=== PATIENT | female | born 2000 | race Caucasian/White ===

== ENCOUNTER → 2024-05-17 | Outpatient (CLI) | payer OTHER, SELFPAY ==
--- NOTE | 2024-05-17 14:39 | BI_ITS ---
PROCEDURE: DIAG MAMM W/CAD, BILAT; BILAT BRST PARTH STAND ALONE; BREAST LIMITED UNILATERAL REASON FOR EXAM: 23-year-old female presents with palpable concern with associated tenderness in the upper-outer right breast. Family history of breast cancer in 2 maternal aunts in their 30s and for 50s. TECHNIQUE: Bilateral diagnostic digital breast tomosynthesis with 2D and 3D images. Computer aided detection. Also, targeted right breast ultrasound was performed. COMPARISON: Baseline examination, no priors. FINDINGS: MAMMOGRAM: The breasts are almost entirely fatty. There is a triangle skin marker indicating the area of palpable concern in the upper-outer right breast at middle depth with an underlying high density circumscribed round mass. There are no additional findings in the right breast. There are no suspicious masses grouped calcifications or architectural distortions in the left breast. ULTRASOUND: Targeted right breast ultrasound performed of the area of palpable concern with associated pain demonstrates a circumscribed hypoechoic mass with increased vascularity, there appears to be a fatty hilum. The mass measures 1.6 x 1.2 x 1.3 cm also, there appears to be an elongated hypoechoic structure extending towards the skin, also there is another elongate similar-appearing elongated hypoechoic structure extending posteriorly, these likely represent vessels. Overall, this likely represents an intramammary lymph node with inflammatory changes. BI/DIAG MAMM W/CAD, BILAT IMPRESSION: 1. The palpable area of concern in the right breast correlates to a mass which is suggestive of an enlarged intramammary lymph node with associated inflammatory changes. Clinical correlation is recommended . Recommend follow-up diagnostic ultrasound in 3 months to assess for resolution. 2. There is no evidence of malignancy in the left breast. BI-RADS 3: PROBABLY BENIGN. Follow-up code: 3 Month Follow-up Reading Location: [id number]
--- NOTE | 2024-05-17 14:42 | BI_ITS ---
PROCEDURE: DIAG MAMM W/CAD, BILAT; BILAT BRST PARTH STAND ALONE; BREAST LIMITED UNILATERAL REASON FOR EXAM: 23-year-old female presents with palpable concern with associated tenderness in the upper-outer right breast. Family history of breast cancer in 2 maternal aunts in their 30s and for 50s. TECHNIQUE: Bilateral diagnostic digital breast tomosynthesis with 2D and 3D images. Computer aided detection. Also, targeted right breast ultrasound was performed. COMPARISON: Baseline examination, no priors. FINDINGS: MAMMOGRAM: The breasts are almost entirely fatty. There is a triangle skin marker indicating the area of palpable concern in the upper-outer right breast at middle depth with an underlying high density circumscribed round mass. There are no additional findings in the right breast. There are no suspicious masses grouped calcifications or architectural distortions in the left breast. ULTRASOUND: Targeted right breast ultrasound performed of the area of palpable concern with associated pain demonstrates a circumscribed hypoechoic mass with increased vascularity, there appears to be a fatty hilum. The mass measures 1.6 x 1.2 x 1.3 cm also, there appears to be an elongated hypoechoic structure extending towards the skin, also there is another elongate similar-appearing elongated hypoechoic structure extending posteriorly, these likely represent vessels. Overall, this likely represents an intramammary lymph node with inflammatory changes. BI/Bilat Brst [place] Stand Alone IMPRESSION: 1. The palpable area of concern in the right breast correlates to a mass which is suggestive of an enlarged intramammary lymph node with associated inflammatory changes. Clinical correlation is recommended . Recommend follow-up diagnostic ultrasound in 3 months to assess for resolution. 2. There is no evidence of malignancy in the left breast. BI-RADS 3: PROBABLY BENIGN. Follow-up code: 3 Month Follow-up Reading Location: [id number]
== END | disposition home or self-care (01) ==
LOC: OPBI 14:34
PROVIDERS: PCP Nurse Practitioner Family; Referring Provider Nurse Practitioner Family; Visit Provider Nurse Practitioner Family
DX: N63.11 Unspecified lump in the right breast, upper outer quadrant (principal)
CPT/HCPCS: 76642; 77062; 77066; G0279